=== PATIENT | female | born 1960 | race Caucasian/White ===

== ENCOUNTER 2016-07-23 11:32 | Emergency (ER) | payer MEDICAID ==
[~2016-07-23] VITALS: Ht 152.4 cm; Wt 49.0 kg
[~2016-07-23 11:32] MED LIST: GLUCOPHAGE500 MG PO
--- NOTE | 2016-07-23 11:36 | NUR ---
BEING SEEN BY DR. CHOWDHURY IN TRIAGE.
--- NOTE | 2016-07-23 11:41 | NUR ---
PATIENT PRESENTS TO ED WITH C/O COLD SYMPTOMS X1 WEEK . PT STATES SHE'S HAD A RUNNY NOSE THAT HASN'T GOTTEN BETTER, BUT SHE DID HAVE A COUGH THAT HAS SINCE DISSIPATED . DENIES N/V/D; SKIN IS PINK/WARM/DRY; AAOX4 WITH EVEN AND STEADY GAIT; LUNGS CLEAR BL; HR EVEN AND REGULAR; PT DENIES ANY FEVER, CP, OR SOB AT THIS TIME; PATIENT STATES PAIN OF 0/10 AT THIS TIME; VSS; ER MD MADE AWARE OF PT STATUS.
[2016-07-23 11:44] VITALS: BP 139/65
--- NOTE | 2016-07-23 12:00 | NUR ---
Patient discharged with v/s stable. Written and verbal after care instructions given and explained. Patient alert, oriented and verbalized understanding of instructions. Ambulatory with steady gait. All questions addressed prior to discharge. ID band removed. Patient advised to follow up with PMD. Rx of SUDAFED AND TYLENOL given. Patient educated on indication of medication including possible reaction and side effects. Opportunity to ask questions provided and answered.
[2016-07-23 12:02] VITALS: BP 139/65
== END 2016-07-23 12:00 | disposition home or self-care (01) ==
LOC: MED 11:32
DX: J06.9 Acute upper respiratory infection, unspecified (principal); E11.9 Type 2 diabetes mellitus without complications

== ENCOUNTER 2017-04-25 17:33 | Emergency (ER) | payer MEDICAID ==
[~2017-04-25] VITALS: Ht 152.4 cm; Wt 37.6 kg
[~2017-04-25 17:33] MED LIST changes: +GLIP5TAB4 PO; -GLUCOPHAGE500 MG PO; +METF500T PO
--- NOTE | 2017-04-25 17:45 | NUR ---
PT AMBULATED TO BED 4.
[2017-04-25 17:46] VITALS: BP 91/61
--- NOTE | 2017-04-25 17:51 | NUR ---
APATIENT PRESENTS TO ED WITH COUGH X2 WEEKS. PT STATES PREVIOUS VISIT TO ER SENT HOME WITH MEDICATIONS AND COUGH IS UNRESOLVED. DENIES N/V/D; SKIN IS PINK/WARM/DRY; AAOX4 WITH EVEN AND STEADY GAIT; LUNGS CLEAR BL; HR EVEN AND REGULAR; PT DENIES ANY FEVER, CP, SOB AT THIS TIME; PATIENT STATES PAIN OF 0/10 AT THIS TIME; INTERMITTENT COUGH WITH WHITE SPUTUM. VSS; PATIENT POSITIONED FOR COMFORT; HOB ELEVATED; BEDRAILS UP X2; BED DOWN. ER MD MADE AWARE OF PT STATUS.
[2017-04-25 18:32] VITALS: BP 91/61
--- NOTE | 2017-04-25 18:32 | NUR ---
Patient discharged with v/s stable. Written and verbal after care instructions given and explained. Patient alert, oriented and verbalized understanding of instructions. Ambulatory with steady gait. All questions addressed prior to discharge. ID band removed. Patient advised to follow up with PMD. Rx of PREDNISONE, ALBUTEROL given. Patient educated on indication of medication including possible reaction and side effects. Opportunity to ask questions provided and answered.
== END 2017-04-25 18:32 | disposition home or self-care (01) ==
LOC: MED 17:33
DX: J98.01 Acute bronchospasm (principal); B34.9 Viral infection, unspecified; E11.9 Type 2 diabetes mellitus without complications; Z79.84 Long term (current) use of oral hypoglycemic drugs
CPT/HCPCS: 71046; 99284

== ENCOUNTER 2018-12-20 11:22 | Day surgery (SDC) | payer MEDICAID ==
[~2018-12-20] VITALS: Ht 152.4 cm; Wt 41.7 kg
[2018-12-20] MEDS ORDERED: LIDOCAINE 2% 100 MG/5 ML UJET TP ONE (13:43)
[2018-12-20] MEDS ORDERED: fentaNYL 0.05 MG/ML VIAL ONE (13:43)
== END 2018-12-20 14:40 | disposition home or self-care (01) ==
LOC: MOR 11:22 → MMU 11:30 → MOR 14:40
PROVIDERS: ATTEND Internal Medicine Gastroenterology
DX: R19.5 Other fecal abnormalities (principal); D12.3 Benign neoplasm of transverse colon; E11.9 Type 2 diabetes mellitus without complications; Z79.899 Other long term (current) drug therapy
CPT/HCPCS: 45385; J3010